=== PATIENT | male | born 1940 | race Caucasian/White ===

== ENCOUNTER → 2017-10-09 12:26 | Outpatient (CLI) | payer OTHER, SELFPAY ==
--- NOTE | 2017-10-09 | DI.ECHO.S_ITS ---
[facility]---------+ [facility] +---------+ : : [address] : [address] : : : : [id number] : : : : Phone: [phone]+ Echocardiogram Report + + :Name: HA LOU Study Date: 10/09/2017 Height: 66 in : :[facility] Weight: 171 lb : : Gender: Male BSA: 1.9 m2 : :: 1940 Age: 77 yrs BP: 120/60 mmHg: :Reason For Study: ISCHEMIC HEART DISEASE : : Performed By: Valerie Perry : :Referring: RAVEN DOWD : + + Interpretation Summary 1) Normal left ventricular thickness, size, and systolic function (EF 55-60%). 2) There are no obvious focal wall motion abnormalities noted but poor endocardial definition reduces the sensitivity for the detection of such. 3) Normal right ventricular size and function. 4) No significant valvular abnormalities. 5) No prior Echo available for comparison. Procedure: A two-dimensional transthoracic echocardiogram with color flow and Doppler was performed. The study quality was technically adequate. There is no prior echocardiogram noted for this patient. The heart rate ranged between 82-96 bpm during the study. Left Ventricle: The left ventricle is normal in size. There is normal left ventricular wall thickness. The ejection fraction is estimated to be 55-60%. Left ventricular systolic function is normal. There are no obvious focal wall motion abnormalities noted but poor endocardial definition reduces the sensitivity for the detection of such. Assessment of diastolic parameters indicates a relaxation abnormality of the left ventricle, consistent with normal filling pressures. Right Ventricle: The right ventricle is mildly dilated. The right ventricular systolic function is normal. Atria: The left atrium is moderately dilated. The right atrium is mildly dilated. There is no Doppler evidence for an interatrial shunt. Mitral Valve: The mitral valve leaflets appear thickened, but open well. There is trace mitral regurgitation. Aortic Valve: The aortic valve is trileaflet. There is no aortic valve stenosis. No aortic regurgitation is present. Tricuspid Valve: The tricuspid valve leaflets are thin and pliable. There is a trace or physiologic amount of tricuspid regurgitation. Pulmonary artery pressures cannot be estimated because of the lack of a measurable TR jet velocity. Pulmonic Valve: The pulmonic valve is normal in structure and function. There is a trace or physiologic amount of pulmonic regurgitation. Great Vessels: The aortic root is normal size. The ascending aorta is normal in size. The pulmonary artery is normal size. The IVC is of normal diameter and collapses greater than 50% with a sniff. This suggests a low right atrial pressure of 3 mm Hg. Pericardium/ Pleura There is no pericardial effusion. There is no pleural effusion. MMode/2D Measurements & Calculations LVIDd: 5.3 cm LVOT diam: 2.1 cm LVIDs: 3.7 cm Ao root diam: 3.3 cm FS: 29.6 % asc Aorta Diam: 3.0 cm IVSd: 0.74 cm LVPWd: 0.85 cm LV velez. diameter/BSA (cm/m^2): 2.8 LV sys. diameter/BSA (cm/m^2): 2.0 LA A2 area: 23.7 cm2 RA long axis: 5.4 cm LA A4 area: 28.6 cm2 RA area: 21.0 cm2 LA length (vol): 6.9 cm RA vol: 69.6 ml LA vol: 83.7 ml RA : 37.2 ml/m2 LA vol index: 44.7 ml/m2 IVC diam: 1.6 cm RVD1 (basal): 3.3 cm TAPSE: 2.3 cm Doppler Measurements & Calculations Ao V2 max: 141.4 cm/sec LVOT Max Richardson: 114.2 cm/sec Ao V2 mean: 97.7 cm/sec LV V1 max P.2 mmHg Ao max P.0 mmHg LV V1 VTI: 22.8 cm Ao mean P.2 mmHg DEEPALI(I,D): 3.1 cm2 Ao V2 VTI: 26.0 cm DEEPALI(V,D): 2.9 cm2 sev ratio: 0.88 DEEPALI indexed to BSA (cm^2/m^2): 1.7 MV E max richardson: 71.2 cm/sec PA V2 max: 80.7 cm/sec MV A max richardson: 76.6 cm/sec PA V2 mean: 59.4 cm/sec MV E/A: 0.93 PA mean P.5 mmHg Med Peak E' Richardson: 5.9 cm/sec E/E' med: 12.1 Lat Peak E' Richardson: 10.0 cm/sec E/E' lat: 7.1 E/e' average: 9.6 MV dec time: 0.22 sec Reading Physician:01:28 PM
== END ==
PROVIDERS: Visit Provider Physician Assistant
DX: I25.9 Chronic ischemic heart disease, unspecified (principal)
CPT/HCPCS: 93306

== ENCOUNTER 2017-10-15 10:07 | Emergency (ER) | payer OTHER, SELFPAY ==
[2017-10-15 10:10] VITALS: BP 132/61; PULSE 96; RESP 22; TEMP 36.9; O2SAT 98; BMI 26.4
[2017-10-15 11:17] VITALS: BP 104/53; PULSE 75; RESP 16; O2SAT 97
[2017-10-15 11:25] LABS: INR 1.2 (0.9-1.3); Prothrombin Time 12.8 SECONDS (10.1-12.7)
[2017-10-15 11:27] LABS: PTT Partial Thromboplastin Tim 33 SECONDS (26.4-36.2)
[2017-10-15 11:29] LABS: BUN Creatinine Ratio 16.3 (6-22); Blood Urea Nitrogen 13 mg/dL (9-20); Calcium 8.4 mg/dL (8.4-10.2); Carbon Dioxide 27 mmol/L (22-32); Chloride 102 mmol/L (98-107); Estimated Glomerular Filt Rate > 60.0 mL/min (>60); Glucose 104 mg/dL (80-110); HEMOLYSIS < 15 (0-50); Potassium 4.1 mmol/L (3.4-5.1); Sodium 138 mmol/L (137-145)
[2017-10-15 11:31] LABS: Hemoglobin 7.5 g/dL (13.5-17.5); Red Blood Cell Count 2.72 X10^6/uL (4.5-5.9)
[2017-10-15 11:32] LABS: Hematocrit 22.6 % (41-53); Mean Corpuscular HGB Conc 33.1 % (30-36); Mean Corpuscular Hemoglobin 27.5 PG (26-34); Red Cell Distribution Width 16.4 % (11.6-14.8)
[2017-10-15 11:33] LABS: Platelet Count 10 X10^3/uL (150-400)
[2017-10-15 11:34] LABS: Add Manual Diff / Slide Review YES
--- NOTE | 2017-10-15 11:47 | ED_ITS ---
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 Patient states that his last dose of chemotherapy was sometime in the last month. There is some confusion as to if it was last week or 3 weeks ago. He states that he had blood drawn recently by his oncologist who is at [facility] and was told that he needed to come the emergency department. Patient states that he has felt weak over the past couple days. No blood in his stool. No blood in his urine. No headache. No easy bruising. Related Data Allergies Allergy/AdvReac Type Severity Reaction Status Date / Time No Known Drug Allergies Allergy Verified 10/15/17 10:37 Review of Systems Constitutional Reports fatigue, Denies fever(s) and Reports lethargy Eyes Denies diplopia, Denies dry eyes and Denies itchy eyes ENT Ears, Nose, Mouth, and Throat: Denies vertigo, Denies dizziness, Denies lip swelling, Denies throat swelling and Denies tongue swelling Cardiovascular Denies chest pain, Denies syncope and Denies dyspnea Respiratory Denies cough and Denies dyspnea Gastrointestinal Gastrointestinal: Denies constipation, Denies diarrhea, Denies nausea and Denies vomiting Genitourinary Denies dysuria Musculoskeletal Denies back pain, Denies myalgias and Denies arthralgias Integumentary/Breasts Denies lesions, Denies rash and Denies wounds Neurologic Denies vertigo, Denies dizziness and Denies syncope Psychiatric Denies anxiety Endocrine Reports fatigue Hematologic/Lymphatic Denies easy bleeding and Denies easy bruising Allergic/Immunologic Denies urticaria, Denies itchy eyes, Denies lip swelling, Denies throat swelling and Denies tongue swelling [facility] Social History Smoking Status: Former smoker Exam Initial Vital Signs Initial Vital Signs: Vital Signs Temperature 98.4 F 10/15/17 10:10 Pulse Rate 96 H 10/15/17 10:10 Respiratory Rate 22 10/15/17 10:10 Blood Pressure 132/61 H 06/24/18 10:10 Pulse Oximetry 98 10/15/17 10:10 Const General: cooperative, healthy appearing, comfortable, well developed, well groomed and No acute distress HENMT Head: normal to inspection, normocephalic and atraumatic Resp Effort & Inspection: normal respiratory effort Auscultation: clear to auscultation bilaterally Cardio Rate: regular rate Rhythm: regular rhythm Pulses: radial pulses present GI Inspection: non-distended Palpation: soft, No firm and No guarding Skin Lesions: no lesions Rashes: no rashes Neuro General: alert, awake and oriented x3 Cognition: normal cognition Speech: speech normal Extrem General: normal to inspection and capillary refill normal Course Orders Ordered: ED Orders 10/15/17 11:05 Basic Metabolic Panel Stat Complete Blood Count AUTO DIFF Stat Partial Thromboplastin Time Stat Prothrombin Time INR Stat Type and Screen Stat Vital Signs - 8 hr 10/15/17 10:10 10/15/17 11:17 10/15/17 12:47 Temperature 98.4 F Pulse Rate 96 H 75 76 Respiratory Rate 22 16 16 Blood Pressure 132/61 H Blood Pressure [Left Arm] 104/53 L 120/62 Pulse Oximetry 98 97 100 MDM - Recheck/Abnormal Lab/Rx Lab Data Attestation: I reviewed the patient's lab results. Result diagrams: 10/15/17 11:05 10/15/17 11:05 Lab Results 10/15/17 10/15/17 10/15/17 Range/Units 11:05 11:05 11:05 WBC 2.0 L (4.5-11.0) X10^3/uL RBC 2.72 L (4.5-5.9) X10^6/uL Hgb 7.5 L (13.5-17.5) g/dL Hct 22.6 L (41-53) % MCV 83.0 (80-100) fL MCH 27.5 (26-34) PG MCHC 33.1 (30-36) % RDW 16.4 H (11.6-14.8) % Plt Count 10 L* (150-400) X10^3/uL Neut % (Auto) Not Reportable Lymph % (Auto) Not Reportable [place] % (Auto) Not Reportable Eos % (Auto) Not Reportable Baso % (Auto) Not Reportable Total Counted 50 Seg Neutrophils % 6.0 L (38-70) % Lymphocytes % (Manual) 86.0 H (25-45) % Monocytes % (Manual) 8.0 (2-11) % Neutrophils # (Manual) 120 L (0156-6003) /uL Nucleated RBCs 10 H ( - 0) #/Diff RBC Morphology Not Reportable Polychromasia 3+ H Anisocytosis 2+ H PT 12.8 H (10.1-12.7) SECONDS INR 1.2 (0.9-1.3) APTT 33 (26.4-36.2) SECONDS Sodium 138 (137-145) mmol/L Potassium 4.1 (3.4-5.1) mmol/L Chloride 102 (98-107) mmol/L Carbon Dioxide 27 (22-32) mmol/L BUN 13 (9-20) mg/dL Creatinine 0.80 (0.66-1.25) mg/dL Estimated GFR > 60.0 (>60) mL/min BUN/Creatinine Ratio 16.3 (6-22) Glucose 104 (80-110) mg/dL Calcium 8.4 (8.4-10.2) mg/dL Blood Type 10/15/17 Range/Units 11:05 WBC (4.5-11.0) X10^3/uL RBC (4.5-5.9) X10^6/uL Hgb (13.5-17.5) g/dL Hct (41-53) % MCV (80-100) fL MCH (26-34) PG MCHC (30-36) % RDW (11.6-14.8) % Plt Count (150-400) X10^3/uL Neut % (Auto) Lymph % (Auto) [place] % (Auto) Eos % (Auto) Baso % (Auto) Total Counted Seg Neutrophils % (38-70) % Lymphocytes % (Manual) (25-45) % Monocytes % (Manual) (2-11) % Neutrophils # (Manual) (4464-2483) /uL Nucleated RBCs ( - 0) #/Diff RBC Morphology Polychromasia Anisocytosis PT (10.1-12.7) SECONDS INR (0.9-1.3) APTT (26.4-36.2) SECONDS Sodium (137-145) mmol/L Potassium (3.4-5.1) mmol/L Chloride (98-107) mmol/L Carbon Dioxide (22-32) mmol/L BUN (9-20) mg/dL Creatinine (0.66-1.25) mg/dL Estimated GFR (>60) mL/min BUN/Creatinine Ratio (6-22) Glucose (80-110) mg/dL Calcium (8.4-10.2) mg/dL Blood Type O Positive MDM Narrative Medical decision making narrative: Patient with pancytopenia, anemia and thrombocytopenia. I discussed the case with Dr. Kate with Internal Medicine at [address] who admits for oncology. He states that the patient's last blood counts were drawn on the 10 of October where the patient had a white blood cell count of 1 a hematocrit of 28 and a platelet count of 18. Patient has no signs of active bleeding today. Dr. Kate accepts the patient in transfer. Informed patient and of the pending transfer. They expressed understanding and agreement. Discharge Plan Departure Patient Disposition: [facility] Clinical Impression: Thrombocytopenia, Anemia
[2017-10-15 11:55] LABS: Neutrophils Absolute Manual 120 /uL (3000-5900); Nucleated Red Blood Cells 10 #/Diff; Polychromasia 3+; Total Cells Counted 50
[2017-10-15 11:56] LABS: Anisocytosis 2+
[2017-10-15 12:47] VITALS: BP 120/62; PULSE 76; RESP 16; O2SAT 100
[2017-10-15 14:22] VITALS: BP 116/61; PULSE 69; RESP 18; O2SAT 98
--- NOTE | 2017-10-15 15:09 | PC.NURSE ---
Spoke to [place], Lab--reports pt's blood shows antibody that we cannot identify at [facility]. Needs to be sent to [facility] in [place] which will have a 6-[address] Gonzalez made aware.
== END 2017-10-15 15:31 | disposition short-term general hospital (02) ==
PROVIDERS: Emergency Provider Emergency Medicine
DX: D69.6 Thrombocytopenia, unspecified (principal); D64.9 Anemia, unspecified
CPT/HCPCS: 36591; 80048; 85025; 85610; 85730; 86850; 86870; 86900; 86901; 99283